=== PATIENT | male | born 1995 | race Caucasian/White ===

== ENCOUNTER 2017-01-28 14:58 | Emergency (ER) | payer SELFPAY ==
[2017-01-28 15:07] VITALS: BP 152/84; BMI 30.7
--- NOTE | 2017-01-28 15:32 | DR.EXTPAIN ---
HPI - Time seen Time seen: 15:28 - PCP Primary Care Physician: NFD - Complaint/Symptoms Chief Complaint Doctor Comments: patient admits to lower abdominal pain s/p two days of diarrhea. He denies vomitng or fever. Chief Complaint:: LOWER BACK AND LOWER ABD PAIN - Source History Provided: Patient - Mode of arrival Mode of Arrival: Ambulatory - Timing Onset of Chief Complaint: 01/28/17 PMH - PMH Past Medical History: Yes Past Medical History: Asthma Past Surgical History: Yes Past Surgical History Comment: TRAUMA TO LEFT POINTER FINGER, NO SX - Family History History of Family Medical Conditions: No - Social History Does patient currently use any type of tobacco product: No Have you used tobacco products in the last 12 months: No Type of Tobacco Use: None Does any household member use tobacco: No Alcohol Use: Occasionally Do you use any recreational Drugs:: No Lives With: Family Lives Where: Home - infectious screening In the last 2 months have you had wt loss of >10#?: NO Have you had fever, night sweats or hemotysis?: No Have you traveled outside the country in the last 6 months?: No Isolation: Standard ROS - Review of Systems Eyes: No Symptoms Reported ENTM: No Symptoms Reported Respiratoy: No Symptoms Reported Cardiovascular: No Symptoms Reported Gastrointestinal/Abdominal: Abdominal Pain. negative: Constipation, Vomiting Genitourinary: No Symptoms Reported Neurological: No Symptoms Reported Musculoskeletal: Back Pain Integumentary: No Symptoms Reported, See HPI Hematologic/Lymphatic: No Symptoms Reported Endocrine: No Symptoms Reported Psychiatric: No Symptoms Reported All Other Systems: Reviewed and Negative PE - Vital Signs Vitals: Temperature 98.2 F Pulse Rate 82 Respiratory Rate 20 Blood Pressure 152/84 O2 Sat by Pulse Oximetry 99 - General Limitations: No Limitations General Appearance: Alert, In No Apparent Distress - Head Head Exam: Normal Inspection, Atraumatic - ENT ENT Exam: Normal Exam, Normal Oropharynx - Neck Neck Exam: Normal Inspection - Chest Chest Inspection: Normal Inspection - Respiratory Respiratory Exam: Normal Lung Sounds Bilat Respiratory Exam: Bilateral Clear to Auscultation - Cardiovascular Cardiovascular Exam: Regular Rate, Normal Rhythm - Abdominal Exam Abdominal Exam: Normal Inspection, Normal Bowel Sounds Abdominal Tenderness: negative: RUQ, RLQ, LUQ, LLQ, Epigastrium, Suprapubic, Diffuse, Mild, Moderate, Severe, Other - Extremities Extremities Exam: Normal Inspection, Full ROM - Upper Extremities Shoulder Exam: Normal Inspection, Full ROM Arm Exam: Normal Inspection Elbow Exam: Normal Inspection Forearm Exam: Normal Inspection, Full ROM Hand Exam: Normal Inspection Neuromotor Exam: Normal Exam Neurosensory Exam: Normal Exam Hand Tendon Exam: Flexor Digitorium Profundus (Location) Upper Ext. Vascular Exam: Capillary Refill, Radial Pulse - Lower Extremities Hip/Pelvis Exam: Normal Inspection Upper Leg Exam: Normal Inspection Knee Exam: Normal Inspection, Full ROM Lower Leg Exam: Normal Inspection Ankle Exam: Normal Inspection Foot/Toe Exam: Normal Inspection Neurovascular/Tendon Exam: Normal Capillary Refill Gait Exam: Observed and Normal - Back Back Exam: Normal Inspection, Full ROM - Neurological Neurological Exam: Alert, Oriented X3, CN II-XII Intact - Psychiatric Psychiatric Exam: Normal Affect - Skin Skin Exam: Warm, Dry Type of Lesion: Rash ROR - Labs Reviewed Result Diagrams: 01/28/17 15:42 01/28/17 15:42 Laboratory: WBC 7.6 X10^3/uL (3.6-10.0) 01/28/17 15:42 RBC 5.20 X10^6/uL (4.7-6.0) 01/28/17 15:42 Hgb 15.8 g/dL (13.5-18.0) 01/28/17 15:42 Hct 44.3 % (42.0-54.0) 01/28/17 15:42 MCV 85.3 fL (80.0-100.0) 01/28/17 15:42 MCH 30.3 pg (27.0-34.0) 01/28/17 15:42 MCHC 35.6 g/dL (33.0-35.0) H 01/28/17 15:42 RDW 12.0 % (11.6-16.5) 01/28/17 15:42 Plt Count 183 X10^3/uL (150.0-450.0) 01/28/17 15:42 MPV 9.3 fL (7.4-11.0) 01/28/17 15:42 Neut % 69.1 % (42.0-75.0) 01/28/17 15:42 Lymph % 16.6 % (21.0-51.0) L 01/28/17 15:42 [place] % 9.6 % (0.0-13.0) 01/28/17 15:42 Eos % 4.4 % (0.9-2.9) H 01/28/17 15:42 Baso % 0.3 % (0.2-1.0) 01/28/17 15:42 Neut # 5.2 x10^3/uL (2.2-4.8) H 01/28/17 15:42 Lymph # 1.3 X10^3/uL (1.3-2.9) 01/28/17 15:42 [place] # 0.7 x10^3/uL (0.3-0.8) 01/28/17 15:42 Eos # 0.3 x10^3/uL (0.0-0.2) H 01/28/17 15:42 Baso # 0.0 X10^3/uL (0.0-0.1) 01/28/17 15:42 Absolute Nucleated RBC 0.1 /100WBC 01/28/17 15:42 Sodium 139 mmol/L (136-145) 01/28/17 15:42 Corrected Sodium TNP 01/28/17 15:42 Potassium 4.0 mmol/L (3.5-5.1) 01/28/17 15:42 Chloride 103 mmol/L (98-107) 01/28/17 15:42 Carbon Dioxide 29.5 mmol/L (21-32) 01/28/17 15:42 BUN 13 mg/dL (7-18) 01/28/17 15:42 Creatinine 1.28 mg/dL (0.70-1.30) 01/28/17 15:42 Est GFR (MDRD) Af Amer > 60 (>60) 01/28/17 15:42 Est GFR (MDRD) Non-Af > 60 (>60) 01/28/17 15:42 Glucose 93 mg/dL (65-99) 01/28/17 15:42 Calcium 8.8 mg/dL (8.5-10.1) 01/28/17 15:42 C-Reactive Protein 34.50 mg/L (0-3.0) H 01/28/17 15:42 Specimen Type Clean catch urine 01/28/17 15:25 Urine Color Yellow (YELLOW) 01/28/17 15:25 Urine Appearance Clear (CLEAR) 01/28/17 15:25 Urine pH 7.0 (5.0 - 8.0) 01/28/17 15:25 Ur Specific [place] 1.005 (1.000-1.030) 01/28/17 15:25 Urine Protein Negative (NEGATIVE) 01/28/17 15:25 Urine Glucose (UA) Negative (NEGATIVE) 01/28/17 15:25 Urine Ketones Negative (NEGATIVE) 01/28/17 15:25 Urine Occult Blood Negative (NEGATIVE) 01/28/17 15:25 Urine Nitrite Negative (NEGATIVE) 01/28/17 15:25 Urine Bilirubin Negative (NEGATIVE) 01/28/17 15:25 Urine Urobilinogen 1+ (NORMAL) 01/28/17 15:25 Ur Leukocyte Esterase Negative (NEGATIVE) 01/28/17 15:25 Urine RBC Rare /HPF (NEGATIVE) 01/28/17 15:25 Urine WBC Rare /HPF (NEGATIVE) 01/28/17 15:25 Ur Squamous Epith Cells Rare /HPF (NEGATIVE) 01/28/17 15:25 Amorphous Sediment Trace /HPF (NEGATIVE) 01/28/17 15:25 Urine Bacteria Negative /HPF (NEGATIVE) 01/28/17 15:25 Ur Culture Indicated? No/not indicated 01/28/17 15:25 - XRAY XRAY Interpreted by: Radiologist (KUB: negative CT: Abd/pelv: negative) - Diagnosis Discharge Problem: Acute diarrhea - Discharge Plan Condition: Stable - Follow ups/Referrals Follow ups/Referrals: NFD,None [Primary Care Provider] - 3 days - Instructions
[2017-01-28 15:53] LABS: BASOPHILS % (AUTO) 0.3 % (0.2-1.0); EOSINOPHILS # (AUTO) 0.3 x10^3/uL (0.0-0.2); EOSINOPHILS % (AUTO) 4.4 % (0.9-2.9); HEMATOCRIT 44.3 % (42.0-54.0); HEMOGLOBIN 15.8 g/dL (13.5-18.0); LYMPHOCYTES # (AUTO) 1.3 X10^3/uL (1.3-2.9); LYMPHOCYTES % (AUTO) 16.6 % (21.0-51.0); MEAN CORPUSCULAR HEMOGLOBIN 30.3 pg (27.0-34.0); MEAN CORPUSCULAR HGB CONC 35.6 g/dL (33.0-35.0); MEAN CORPUSCULAR VOLUME 85.3 fL (80.0-100.0); MEAN PLATELET VOLUME 9.3 fL (7.4-11.0); MONOCYTES # (AUTO) 0.7 x10^3/uL (0.3-0.8); MONOCYTES % (AUTO) 9.6 % (0.0-13.0); NEUTROPHILS # (AUTO) 5.2 x10^3/uL (2.2-4.8); NEUTROPHILS % (AUTO) 69.1 % (42.0-75.0); PLATELET COUNT 183 X10^3/uL (150.0-450.0); WHITE BLOOD COUNT 7.6 X10^3/uL (3.6-10.0)
[2017-01-28 16:09] LABS: CHLORIDE 103 mmol/L (98-107)
[2017-01-28 16:10] LABS: BILIRUBIN,URINE NEGATIVE (NEGATIVE); BLOOD/HEMOGLOBIN,URINE NEGATIVE (NEGATIVE); GLUCOSE, URINE NEGATIVE (NEGATIVE); KETONES,URINE NEGATIVE (NEGATIVE); LEUKOCYTE ESTERASE ,URINE NEGATIVE (NEGATIVE); NITRITES,URINE NEGATIVE (NEGATIVE); PROTEIN,URINE NEGATIVE (NEGATIVE); UROBILINOGEN,URINE 1+ (NORMAL)
--- NOTE | 2017-01-28 16:18 | RAD ---
HISTORY: Abdominal Pain Study: Single flat view of the abdomen. Comparison: None Findings: Evaluation of the abdomen demonstrates a normal bowel gas pattern. No free air. No pathological sof t tissue mass or calcification can be observed. The bony structures are grossly intact. IMPRESSION: 1. No evidence for acute abdominal pathology identified. Reported By:
[2017-01-28 16:23] LABS: BLOOD UREA NITROGEN 13 mg/dL (7-18); CALCIUM 8.8 mg/dL (8.5-10.1); CARBON DIOXIDE 29.5 mmol/L (21-32); CREATININE 1.28 mg/dL (0.70-1.30); GLUCOSE 93 mg/dL (65-99); SODIUM 139 mmol/L (136-145); eGFR BLACK RACES > 60 (>60); eGFR NON BLACK RACES > 60 (>60)
[2017-01-28 16:24] LABS: APPEARANCE,URINE CLEAR (CLEAR); COLOR,URINE YELLOW (YELLOW)
[2017-01-28 16:25] LABS: AMORPHOUS SEDIMENT,UR TRACE /HPF (NEGATIVE); BACTERIA,URINE NEGATIVE /HPF (NEGATIVE); RBC,URINE RARE /HPF (NEGATIVE); SQUAMOUS EPITHELIAL CELL,UR RARE /HPF (NEGATIVE)
[2017-01-28] MEDS ORDERED: BENTYL CAP 10 MG PO ONE ×2 (16:28→16:41)
[2017-01-28] MEDS ORDERED: NS 100 ML IV 100 ML IV ONE (17:03)
--- NOTE | 2017-01-28 17:38 | CT ---
HISTORY: Low abdominal pain. Study: CT abdomen and pelvis with contrast Comparison: KUB dated same day. Technique: Multiple axial images of the abdomen and pelvis were obtained from the lung bases to the pubic symph ysis after the administration of IV contrast. Dose reduction techniques including Automated Exposur e Control (AEC) and adjustment of mA and kV were utilized. Findings: Limited evaluation of the bowel secondary lack of oral contrast. The visualized portions of the lung bases are unremarkable. The liver, spleen, pancreas, kidneys, a nd adrenal glands are unremarkable in their CT appearance. The gallbladder is unremarkable in its CT appearance. No significant mesenteric lymphadenopathy or stranding can be observed. No free fluid or free air is seen within the abdomen. The bowel is collapsed , which limits evaluation. The larg e and small bowel otherwise appear normal. The appendix is normal. The bladder is unremarkable. The prostate gland appears normal. The bony structures are grossly intact. IMPRESSION: No CT evidence of acute abdominal/pelvic pathology. Reported By:
== END 2017-01-28 17:46 | disposition home or self-care (01) ==
LOC: ER 15:14
DX: R19.7 Diarrhea, unspecified (principal); R10.84 Generalized abdominal pain
CPT/HCPCS: 36415; 74000; 74177; 80048; 81001; 85025; 86140; 96365; 99283; A4222

== ENCOUNTER 2019-07-20 14:20 | Inpatient (IN) ==
--- NOTE | 2019-07-20 15:10 | DR.GENAD ---
HPI Time Seen Time Seen by Provider: 07/20/19 15:09 PCP Primary Care Physician: OMA HPI Comment HPI Comment: pt with ca. Today, fever to 102, vomiting and diarrhea. Was put on Keflex for small skin abscess a week ago. No sx's of URI, cough, UTI. Complaint/Symptoms Chief Complaint Doctors Comments: in attendance. Says he gets his ca care at [facility] in [facility]. 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 Finished radiation about 3 weeks ago. Just finished vinblastine and due to restart in 7-10 days. Chief Complaint:: "SICK, FEVER, N/V/D, PAIN, CHILLS, ON A BREAK FROM CHEMO AND RADIATION, MEDULA BLASTOMA" Self Treatment fo Chief Complaint: NONE Nurses notes reviewed Nurses Notes Review: Yes Source History Provided: Patient and Significant Other Mode of Arrival Mode of Arrival: Wheelchair Timing Onset of Chief Complaint: 07/20/19 Came on: Gradually Duration Duration: Since Onset Modifying Factors Worsens:: by nothing Improves:: with nothing Associated Signs and Symptoms Associated Signs and Symptoms: fever, V, D PMH PMH Past Medical History: Yes Past Medical History: GERD Past Medical History Comment: CANCER Past Surgical History: Yes Past Surgical History Comment: 3 brain SURGERIES Family History History of Family Medical Conditions: Yes Family Medical History: Cancer and Hypertension Social History Does patient currently use any type of tobacco product: No Have you used tobacco products in the last 12 months: No Type of Tobacco Use: None Does any household member use tobacco: No Alcohol Use: None Do you use any recreational Drugs:: No Lives With: Spouse Lives Where: Home infectious screening In the last 2 months have you had wt loss of >10#?: NO Have you had fever, night sweats or hemotysis?: No Have you traveled outside the country in the last 6 months?: No Isolation: Standard ROS Review of Systems Constitutional: Fever and Loss of Appetite ENTM: No Symptoms Reported Respiratoy: No Symptoms Reported Cardiovascular: No Symptoms Reported Gastrointestinal/Abdominal: See HPI, Diarrhea and Vomiting Genitourinary: No Symptoms Reported Neurological: No Symptoms Reported Musculoskeletal: No Symptoms Reported Integumentary: No Symptoms Reported All Other Systems: Reviewed and Negative PE Vital Signs Vitals: Temperature 97.9 F Pulse Rate 85 Respiratory Rate 18 Blood Pressure [Left Arm] 132/81 Blood Pressure 129/74 O2 Sat by Pulse Oximetry 97 General Limitations: No Limitations General Appearance: Alert and Other (actively vomiting) Eyes Eye exam: Normal Appearance, PERRL, EOMI and Other (no obvious papilledema.); negative Scleral Icterus and Nystagmus ENT ENT Exam: Normal Exam and Mucous Membranes Dry Neck Neck Exam: Full ROM; negative Meningismus and Lymphadenopathy Respiratory Respiratory Exam: Normal Lung Sounds Bilat Cardiovascular Cardiovascular Exam: Regular Rate and Normal Rhythm Abdominal Exam Abdominal Exam: Soft, Tenderness and Guarding; negative Rebound, Rigidity and Mass Abdominal Tenderness: Epigastrium Extremities Extremities Exam: Normal Inspection and Full ROM Back Back Exam: Full ROM; negative (R) CVA Tenderness and (L) CVA Tenderness Neurologic Neurological Exam: Alert and Oriented X3 Skin Skin Exam: Warm and Dry; negative Rash and Diaphoresis MDM Differential Diagnosis Differential Diagnosis: PN, UTI, Flu. Or intraabdominal infection. COURSE Treatment Treatment: Pt improved with IV ZOFRAN AND FLUIDS. NO SOURCE OF INFECTION FOUND UNTIL CT ABD SHOWED ENTERITIS. Will call oncologist in [place] to discuss about treatment and possible transfer. ROR Labs Reviewed Laboratory Results Reviewed?: Yes Result Diagrams: 07/22/19 06:09 07/22/19 06:09 Laboratory: WBC 4.1 X10^3/uL (3.6-10.0) 07/20/19 15:50 RBC 4.43 X10^6/uL (4.7-6.0) L 07/20/19 15:50 Hgb 15.0 g/dL (13.5-18.0) 07/20/19 15:50 Hct 42.8 % (42.0-54.0) 07/20/19 15:50 MCV 96.7 fL (80.0-100.0) 07/20/19 15:50 MCH 33.8 pg (27.0-34.0) 07/20/19 15:50 MCHC 35.0 g/dL (33.0-35.0) 07/20/19 15:50 RDW 16.7 % (11.6-16.5) H 07/20/19 15:50 Plt Count 190 X10^3/uL (150.0-450.0) 07/20/19 15:50 MPV 7.2 fL (7.4-11.0) L 07/20/19 15:50 Neut % (Auto) 90.0 % (42.0-75.0) H 07/20/19 15:50 Lymph % (Auto) 5.1 % (21.0-51.0) L 07/20/19 15:50 [place] % (Auto) 3.9 % (0.0-13.0) 07/20/19 15:50 Eos % (Auto) 0.6 % (0.9-2.9) L 07/20/19 15:50 Baso % (Auto) 0.4 % (0.2-1.0) 07/20/19 15:50 Neut # (Auto) 3.7 x10^3/uL (2.2-4.8) 07/20/19 15:50 Lymph # (Auto) 0.2 X10^3/uL (1.3-2.9) L 07/20/19 15:50 [place] # (Auto) 0.2 x10^3/uL (0.3-0.8) L 07/20/19 15:50 Eos # (Auto) 0.0 x10^3/uL (0.0-0.2) 07/20/19 15:50 Baso # (Auto) 0.0 X10^3/uL (0.0-0.1) 07/20/19 15:50 Absolute Nucleated RBC 0.1 /100WBC 07/20/19 15:50 Sodium 142 mmol/L (136-145) 07/20/19 15:50 Corrected Sodium TNP 07/20/19 15:50 Potassium 3.6 mmol/L (3.5-5.1) 07/20/19 15:50 Chloride 105 mmol/L (98-107) 07/20/19 15:50 Carbon Dioxide 28.7 mmol/L (21-32) 07/20/19 15:50 BUN 16 mg/dL (7-18) 07/20/19 15:50 Creatinine 0.95 mg/dL (0.70-1.30) 07/20/19 15:50 Est GFR (MDRD) Af Amer > 60 (>60) 07/20/19 15:50 Est GFR (MDRD) Non-Af > 60 (>60) 07/20/19 15:50 Glucose 97 mg/dL (65-99) 07/20/19 15:50 Calcium 9.1 mg/dL (8.5-10.1) 07/20/19 15:50 Corrected Calcium TNP 07/20/19 15:50 Total Bilirubin 0.60 mg/dL (0.2-1.0) 07/20/19 15:50 AST 29 Units/L (15-37) 07/20/19 15:50 ALT 161 Units/L (12-78) H 07/20/19 15:50 Alkaline Phosphatase 48 Units/L (46-116) 07/20/19 15:50 Total Protein 7.2 g/dL (6.4-8.2) 07/20/19 15:50 Albumin 3.9 g/dL (3.4-5.0) 07/20/19 15:50 Globulin 3.3 g/dL (2.5-4.5) 07/20/19 15:50 Albumin/Globulin Ratio 1.2 Ratio (1.1-2.1) 07/20/19 15:50 Lipase 120 Units/L (73-393) 07/20/19 15:50 Specimen Type Random urine 07/20/19 17:45 Urine Color Yellow (YELLOW) 07/20/19 17:45 Urine Appearance Clear (CLEAR) 07/20/19 17:45 Urine pH 5.0 (5.0 - 8.0) 07/20/19 17:45 Ur Specific [place] 1.025 (1.000-1.030) 07/20/19 17:45 Urine Protein Negative (NEGATIVE) 07/20/19 17:45 Urine Glucose (UA) Negative (NEGATIVE) 07/20/19 17:45 Urine Ketones Negative (NEGATIVE) 07/20/19 17:45 Urine Occult Blood 1+ (NEGATIVE) 07/20/19 17:45 Urine Nitrite Negative (NEGATIVE) 07/20/19 17:45 Urine Bilirubin Negative (NEGATIVE) 07/20/19 17:45 Urine Urobilinogen Normal (NORMAL) 07/20/19 17:45 Ur Leukocyte Esterase Negative (NEGATIVE) 07/20/19 17:45 Urine RBC 0-2 /HPF (0-3) 07/20/19 17:45 Urine WBC None seen /HPF (0-5) 07/20/19 17:45 Ur Squamous Epith Cells Rare /HPF (NEGATIVE) 07/20/19 17:45 Urine Bacteria Trace /HPF (NEGATIVE) 07/20/19 17:45 Ur Culture Indicated? No/not indicated 07/20/19 17:45 Influenza Type A (PCR) Negative (NEGATIVE) 07/20/19 14:44 Influenza Type B (PCR) Negative (NEGATIVE) 07/20/19 14:44 Other Results Comments: WBC n'l but left shift XRAY XRAY Interpreted by: Radiologist XRAY Findings: Obstr series n'l. CT abd/pelvis w IV shows infectious enteritis Opioid Opioid Risk Tool Age (Charlie box if 16-45): Yes History of Preadolescent Sexual Abuse: No Total: 1 Total Score Risk Category: Low Risk Copyright: Ramirez SUAREZ predicting aberrant behaviors Diagnosis Discharge Problem: Acute gastroenteritis, Acute diarrhea, Immunosuppressed due to chemotherapy Nausea and vomiting Qualifiers: Vomiting type: unspecified Vomiting Intractability: unspecified Qualified Code(s): R11.2 - Nausea with vomiting, unspecified ADDITIONAL NOTES Additional Notes Additional Notes: after consultation with oncologist at [facility] in [facility], patient placed in observation here under the care of Dr. Murillo
[2019-07-20] MEDS ORDERED: NS 1000 ML 1,000 ML IV ONE (15:44)
[2019-07-20] MEDS ORDERED: ZOFRAN INJ 4 MG VIAL IVP ONE (15:44)
[2019-07-20 15:59] LABS: BASOPHILS % (AUTO) 0.4 % (0.2-1.0); EOSINOPHILS % (AUTO) 0.6 % (0.9-2.9); HEMATOCRIT 42.8 % (42.0-54.0); LYMPHOCYTES # (AUTO) 0.2 X10^3/uL (1.3-2.9); LYMPHOCYTES % (AUTO) 5.1 % (21.0-51.0); MEAN CORPUSCULAR HEMOGLOBIN 33.8 pg (27.0-34.0); MEAN CORPUSCULAR VOLUME 96.7 fL (80.0-100.0); MEAN PLATELET VOLUME 7.2 fL (7.4-11.0); MONOCYTES # (AUTO) 0.2 x10^3/uL (0.3-0.8); MONOCYTES % (AUTO) 3.9 % (0.0-13.0); NEUTROPHILS # (AUTO) 3.7 x10^3/uL (2.2-4.8); PLATELET COUNT 190 X10^3/uL (150.0-450.0); RED BLOOD COUNT 4.43 X10^6/uL (4.7-6.0); RED CELL DISTRIBUTION WIDTH 16.7 % (11.6-16.5); WHITE BLOOD COUNT 4.1 X10^3/uL (3.6-10.0)
[2019-07-20 16:08] LABS: ALANINE AMINOTRANSFERASE 161 Units/L (12-78); ALBUMIN 3.9 g/dL (3.4-5.0); ALKALINE PHOSPHATASE 48 Units/L (46-116); ASPARTATE AMINO TRANSFERASE 29 Units/L (15-37); BLOOD UREA NITROGEN 16 mg/dL (7-18); CALCIUM 9.1 mg/dL (8.5-10.1); CARBON DIOXIDE 28.7 mmol/L (21-32); CHLORIDE 105 mmol/L (98-107); CREATININE 0.95 mg/dL (0.70-1.30); SODIUM 142 mmol/L (136-145); TOTAL PROTEIN 7.2 g/dL (6.4-8.2); eGFR NON BLACK RACES > 60 (>60)
[2019-07-20] MEDS ORDERED: NS 1000 ML 1,000 ML ONE ×2 (16:11→18:41)
[2019-07-20] MEDS ORDERED: ZOFRAN INJ 4 MG VIAL ONE (16:12)
[2019-07-20 17:52] LABS: APPEARANCE,URINE CLEAR (CLEAR); BILIRUBIN,URINE NEGATIVE (NEGATIVE); BLOOD/HEMOGLOBIN,URINE 1+ (NEGATIVE); COLOR,URINE YELLOW (YELLOW); GLUCOSE, URINE NEGATIVE (NEGATIVE); KETONES,URINE NEGATIVE (NEGATIVE); LEUKOCYTE ESTERASE ,URINE NEGATIVE (NEGATIVE); NITRITES,URINE NEGATIVE (NEGATIVE); PROTEIN,URINE NEGATIVE (NEGATIVE); UROBILINOGEN,URINE NORMAL (NORMAL)
[2019-07-20 17:59] LABS: BACTERIA,URINE TRACE /HPF (NEGATIVE); RBC,URINE 0-2 /HPF (0-3); SQUAMOUS EPITHELIAL CELL,UR RARE /HPF (NEGATIVE)
[2019-07-20] MEDS ORDERED: DILAUDID INJ IVP ONE (17:59)
[2019-07-20] MEDS ORDERED: DILAUDID INJ ONE (18:04)
[2019-07-20] MEDS ORDERED: NS 100 ML IV 100 ML IV ONE (18:42)
[2019-07-20] MEDS: NS 1000 ML 1,000 ML IV SCH (19:00)
--- NOTE | 2019-07-20 19:00 | CT ---
HISTORYFEVER, N/V/D BRAIN CANCER, BRAIN SURGERY X 3, [id number]/PELVIS WITH CONCOMPARISONJuly 2016TECHNIQUEMultiple axial images of the abdomen and pelvis were obtained from the lung bases to the pubic symphysis after the administration of IV contrast.FINDINGSThe lung bases are clear. The liver, spleen, pancreas, bilateral adrenal glands, and bilateral kidneys are unremarkable. Non aneurysmal aorta. Partially visualized been ventricular peritoneal shunt with tip terminating in the right lower quadrant. Diffuse fluid-filled loops of small and large bowel with mural hyperemia. Diffuse mild wall thickening thickening of the small bowel. Mesenteric vascular engorgement. Scattered small abdominal fluid. No free air. No intra-abdominal abscess. The appendix is normal. The osseous structures are intact. The soft tissues are unremarkable.IMPRESSIONDiffuse thickening of the small bowel with mild thickening and hyperemia. Findings reflect infectious and/or inflammatory enteritis. No obstruction.Electronically signed by: NATA YAN (Jul 20, 2019 18:59:24)
--- NOTE | 2019-07-20 19:50 | RAD ---
HISTORYFEVER, N/V/D BRAIN CANCER, BRAIN SURGERY X 3, SHUNTSTUDYACUTE ABDOMEN SERIESCOMPARISONNoneFINDINGSThe trachea is midline. Right chest Port-A-Cath with tip terminating at the cava atrial junction. Ventricular no peritoneal shunt transverses from the visualized neck, terminating within the right lower quadrant.Flat plate and upright evaluation of the abdomen demonstrates a [normal bowel gas pattern]. There is no pneumoperitoneum. No pathological soft tissue mass or calcification can be observed. The bony structures are grossly intact. Tubular metallic densities overlie the right is skin and may be external to the patient.IMPRESSION1. [No acute cardiopulmonary disease.]2. [No evidence for acute abdominal pathology identified.]Electronically signed by: NATA YAN (Jul 20, 2019 19:49:27)
[2019-07-20] MEDS ORDERED: NS 500 ML IV 1,000 ML IV ONE (22:35)
[2019-07-20] MEDS ORDERED: ZOFRAN INJ 4 MG VIAL IVP PRN (22:36)
[2019-07-20] MEDS: DEMEROL INJ IVP PRN (23:38)
[2019-07-21 00:59] VITALS: BMI 34.5
[2019-07-21] MEDS: NS 1000 ML 1,000 ML IV SCH ×3 (05:25→21:38)
[2019-07-21 05:47] LABS: BASOPHILS % (AUTO) 1.1 % (0.2-1.0); EOSINOPHILS % (AUTO) 0.6 % (0.9-2.9); HEMATOCRIT 43.1 % (42.0-54.0); LYMPHOCYTES # (AUTO) 0.4 X10^3/uL (1.3-2.9); LYMPHOCYTES % (AUTO) 12.2 % (21.0-51.0); MEAN CORPUSCULAR HEMOGLOBIN 33.7 pg (27.0-34.0); MEAN CORPUSCULAR HGB CONC 34.7 g/dL (33.0-35.0); MEAN CORPUSCULAR VOLUME 97.2 fL (80.0-100.0); MEAN PLATELET VOLUME 8.4 fL (7.4-11.0); MONOCYTES # (AUTO) 0.4 x10^3/uL (0.3-0.8); MONOCYTES % (AUTO) 13.1 % (0.0-13.0); NEUTROPHILS # (AUTO) 2.1 x10^3/uL (2.2-4.8); PLATELET COUNT 228 X10^3/uL (150.0-450.0); RED BLOOD COUNT 4.44 X10^6/uL (4.7-6.0); RED CELL DISTRIBUTION WIDTH 17.1 % (11.6-16.5)
[2019-07-21] MEDS: ZOFRAN INJ 4 MG VIAL IVP PRN ×3 (05:51→23:38)
[2019-07-21] MEDS: DEMEROL INJ IVP PRN ×3 (05:51→23:38)
[2019-07-21 05:59] LABS: PLATELET MORPHOLOGY COMMENT NORMAL (NORMAL); WHITE BLOOD COUNT 3.1 X10^3/uL (3.6-10.0)
[2019-07-21 06:05] LABS: ALANINE AMINOTRANSFERASE 199 Units/L (12-78); ALBUMIN 3.2 g/dL (3.4-5.0); ALKALINE PHOSPHATASE 41 Units/L (46-116); ASPARTATE AMINO TRANSFERASE 59 Units/L (15-37); BLOOD UREA NITROGEN 22 mg/dL (7-18); CALCIUM 8.3 mg/dL (8.5-10.1); CARBON DIOXIDE 18.6 mmol/L (21-32); CHLORIDE 105 mmol/L (98-107); COR CA(FOR HYPOALB) 8.9 mg/dL (8.5-10.1); COR NA(FOR HYPERGLY) 138 mmol/L (136-145); CREATININE 1.73 mg/dL (0.70-1.30); SODIUM 138 mmol/L (136-145); TOTAL PROTEIN 6.3 g/dL (6.4-8.2); eGFR NON BLACK RACES 52 (>60)
[2019-07-21 06:12] LABS: CKMB % 1.9 % (<4); CREATINE KINASE 53 Units/L (39-308); CREATINE KINASE MB < 1.0 ng/mL (0-4.0); TROPONIN I < 0.02 ng/mL (0-1.5)
[2019-07-21] MEDS: MAGNESIUM SULFATE 1 GRAM/100 mL PREMIX 1 GM/100 ML BAG IV PRN ×6 (07:11→17:35)
[2019-07-21 09:49] LABS: CRYPTOSPORIDIUM PARVUM ANTIGEN NEGATIVE (NEGATIVE); GIARDIA LAMBLIA ANTIGEN NEGATIVE (NEGATIVE)
[2019-07-21] MEDS: ELIQUIS PO SCH ×2 (10:00→21:33)
[2019-07-21] MEDS: PriLOSEC PO SCH (10:01)
[2019-07-21] MEDS: DECADRON TAB PO SCH ×4 (10:01→21:34)
[2019-07-21] MEDS: LOMOTIL PO PRN ×2 (12:27→16:59)
[2019-07-21] MEDS ORDERED: LANTISEPTIC TOP SCH (17:00)
[2019-07-21] MEDS ORDERED: NYSTATIN OINT ONE (18:25)
--- NOTE | 2019-07-21 21:07 | DR.H&P ---
H&P - History & Physical for Day of: H&P Date: 07/20/19 - Chief Complaint Chief Complaint: FEVER, N/V/D, ABDOMINAL PAIN - History of Present Illness History of Present Illness: IS A 24 YEAR OLD WHITE MALE. HE PRESENTED TO THE ER WITH COMPLAINTS OF FEVER, VOMITING, DIARRHEA, AND ABDOMINAL PAIN. HE REPORTS THAT HE WAS PLACED ON KEFLEX ONE WEEK AGO FOR A SKIN ABSCESS. HE DENIES COUGH, URI, OR URINARY SYMPTOMS. 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 HE IS DUE TO RESTART VINBLASTINE IN 7-10 DAYS. HE HAS HAD THREE BRAIN SURGERIES IN THE PAST YEAR. ON ARRIVAL, VITALS WERE 97.9-100-16-95%-131/96. RBC 4.43, ALT 161. URINALYSIS REVEALED: WBC NONE SEEN, RBC 0-2, BACTERIA TRACE, LEUKOCYTES NEGATIVE. AN ABDOMINAL XRAY WAS OBTAINED AND REVEALED: NO ACUTE CARDIOPULMONARY DISEASE. NO EVIDENCE FOR ACUTE ABDOMINAL PATHOLOGY IDENTIFIED. AN ABDOMEN/PELVIS CT WAS OBTAINED AND REVEALED: DIFFUSE THICKENING OF THE SMALL BOWEL WITH MILD THICKENING AND HYPEREMIA. FINDINGS REFLECT INFECTIOUS AND/OR INFLAMMATORY ENTERITIS. NO OBSTRUCTION. HE WAS GIVEN DILAUDID 1MG IV X 1 DOSE, ZOFRAN 4MG IV X 1 DOSE, AND A NORMAL SALINE BOLUS. HE WAS ADMITTED FOR FURTHER EVALUATION AND TREATMENT OF GASTROENTERITIS AND MEDULO BLASTOMA. HE WAS STARTED ON NORMAL SALINE AT 125ML/HR, ZOFRAN 4MG IV Q6H PRN, DEMEROL 25MG IV Q6H PRN, AND HOME MEDICATIONS WERE RESUMED. WE WILL OBTAIN STOOL STUDIES TODAY. OTHERWISE, WE PLAN TO FOLLOW UP WITH AM LABS AND CONTINUE TO MONITOR. - Past Medical History Past Medical History: GERD Additional Medical History: MEDULA BLASTOMA - Past Surgical History Surgical History: Other Additional Surgical History: BRAIN SURGERY X 3 - Family History Family Medical History: Cancer, Hypertension - Social History Does patient currently use any type of tobacco product: No Have you used tobacco products in the last 12 months: No Type of Tobacco Use: None Does any household member use tobacco: No Alcohol Use: None Drug Use: None Prescription drug monitoring program results: PDMP was not reviewed - Medications Home Medications: No Known Drug Allergies Allergy (Verified 07/18/19 16:29) CONTINUE taking the following medications apixaban [Eliquis] 5 mg PO BID 07/20/19 [History] dexamethasone 4 mg PO TID 07/20/19 [History] docusate sodium [DOK] 100 mg PO BID 07/20/19 [History] omeprazole 40 mg PO DAILY 07/20/19 [History] oxycodone 10 mg PO Q4HR PRN 07/20/19 [History] propranolol 60 mg PO DAILY 07/20/19 [History] - Review of Systems Constitutional: Fever, Weakness Eyes: No Symptoms Reported ENT: No Symptoms Reported Respiratory: No Symptoms Reported Cardiovascular: No Symptoms Reported Gastrointestinal: Nausea, Vomiting, Abdominal Pain, Diarrhea Genitourinary: No Symptoms Reported Musculoskeletal: No Symptoms Reported Skin: No Symptoms Reported Neurological: Weakness - Physical Exam Vital Signs: Temperature 99.6 F Pulse Rate [Right Brachial] 117 Pulse Rate 85 Respiratory Rate 22 Blood Pressure [Left Arm] 111/60 Blood Pressure 129/74 O2 Sat by Pulse Oximetry 97 Oriented: Normal Eyes: Normal Ear: Normal Nose: Normal Throat: Normal Respiratory: Diminished Throughout Cardiovascular: Normal : Normal Auscultation: Bowel Sounds: Increased Tenderness: Diffuse, Moderate. negative: Rebound, Guarding, Rigidity Skin: Normal Musculoskeletal: Normal Psychiatric: Normal Mood Description: Calm Affect: Normal Speech Pattern: Clear - Assessment/Plan (1) Gastroenteritis Status: Acute Plan: ADMIT, NORMAL SALINE, IV ZOFRAN PRN, IV DEMEROL PRN, CONTINUE TO MONITOR (2) Nausea and vomiting Qualifiers: Vomiting type: unspecified Vomiting Intractability: unspecified Qualified Code(s): R11.2 - Nausea with vomiting, unspecified Status: Acute (3) Acute diarrhea Status: Acute Plan: OBTAIN STOOL STUDIES, CONTINUE TO MONITOR - Allergies Allergies/Adverse Reactions: Allergies Allergy/AdvReac Type Severity Reaction Status Date / Time No Known Drug Allergies Allergy Verified 07/18/19 16:29
[2019-07-21] MEDS: NYSTATIN OINT TOP SCH (21:38)
[2019-07-22] MEDS: LOMOTIL PO PRN ×3 (02:39→23:50)
[2019-07-22] MEDS: NS 1000 ML 1,000 ML IV SCH ×4 (03:22→17:29)
[2019-07-22] MEDS: DECADRON TAB PO SCH (05:49)
[2019-07-22 06:40] LABS: BASOPHILS % (AUTO) 0.2 % (0.2-1.0); EOSINOPHILS % (AUTO) 0.1 % (0.9-2.9); LYMPHOCYTES # (AUTO) 0.2 X10^3/uL (1.3-2.9); LYMPHOCYTES % (AUTO) 9.5 % (21.0-51.0); MEAN CORPUSCULAR HGB CONC 35.3 g/dL (33.0-35.0); MEAN CORPUSCULAR VOLUME 93.6 fL (80.0-100.0); MEAN PLATELET VOLUME 7.7 fL (7.4-11.0); MONOCYTES # (AUTO) 0.3 x10^3/uL (0.3-0.8); MONOCYTES % (AUTO) 12.2 % (0.0-13.0); NEUTROPHILS # (AUTO) 1.8 x10^3/uL (2.2-4.8); PLATELET COUNT 180 X10^3/uL (150.0-450.0); RED BLOOD COUNT 3.85 X10^6/uL (4.7-6.0); RED CELL DISTRIBUTION WIDTH 16.8 % (11.6-16.5); WHITE BLOOD COUNT 2.3 X10^3/uL (3.6-10.0)
[2019-07-22 06:55] LABS: ALANINE AMINOTRANSFERASE 586 Units/L (12-78); ALBUMIN 2.7 g/dL (3.4-5.0); ALKALINE PHOSPHATASE 41 Units/L (46-116); ASPARTATE AMINO TRANSFERASE 151 Units/L (15-37); BLOOD UREA NITROGEN 15 mg/dL (7-18); CALCIUM 8.5 mg/dL (8.5-10.1); CARBON DIOXIDE 19.2 mmol/L (21-32); CHLORIDE 102 mmol/L (98-107); COR CA(FOR HYPOALB) 9.5 mg/dL (8.5-10.1); COR NA(FOR HYPERGLY) 133 mmol/L (136-145); CREATININE 1.02 mg/dL (0.70-1.30); MAGNESIUM 2.2 mg/dL (1.7-2.9); SODIUM 132 mmol/L (136-145); TOTAL PROTEIN 6.2 g/dL (6.4-8.2); eGFR NON BLACK RACES > 60 (>60)
[2019-07-22 07:19] LABS: BAND NEUTROPHILS % 36 % (0-10); PLATELET MORPHOLOGY COMMENT NORMAL (NORMAL)
[2019-07-22 07:24] LABS: HEMOGLOBIN 12.7 g/dL (13.5-18.0)
[2019-07-22] MEDS: PriLOSEC PO SCH (08:47)
[2019-07-22] MEDS: ZOFRAN INJ 4 MG VIAL IVP PRN ×3 (08:47→21:25)
[2019-07-22] MEDS: DEMEROL INJ IVP PRN ×3 (08:47→21:40)
[2019-07-22] MEDS: ELIQUIS PO SCH ×2 (08:49→21:29)
[2019-07-22] MEDS ORDERED: FLAGYL TAB 500 MG PO ONE (08:54)
[2019-07-22] MEDS: FLAGYL TAB 500 MG PO SCH ×3 (08:56→21:29)
[2019-07-22] MEDS: NYSTATIN OINT TOP SCH ×2 (09:03→22:56)
[2019-07-22] MEDS: PREPARATION H OINT RECTAL PRN (12:00)
[2019-07-22] MEDS: TUCKS MEDICATED PAD TOP PRN (12:00)
[2019-07-22] MEDS ORDERED: NS 1000 ML 1,000 ML ONE (17:31)
[2019-07-22] MEDS: LANTISEPTIC TOP PRN (17:34)
--- NOTE | 2019-07-22 21:54 | PCM.PROG ---
Progress Note - Progress Note for Day of Date of Exam: 07/22/19 - Subjective Subjective: IS BEING TREATED FOR GASTROENTERITIS. TODAY, HE IS ALERT AND ORIENTED, LYING IN BED ON MORNING ROUNDS. HE CONTINUES WITH COMPLAINTS OF DIARRHEA, NAUSEA, AND ABDOMINAL PAIN. ON EXAMINATION, HEART IS REGULAR IN RATEAND RHYTHM. BILATERAL LUNGS ARE CLEAR TO AUSCULTATION. ABDOMEN IS ROUND, SOFT, AND NOTED WITH DIFFUSE TENDERNESS. HYPERACTIVE BOWEL SOUNDS ARE NOTED IN ALL QUADRANTS. HIS VITALS THIS MORNING ARE: 98.6-95-19-97%-154/82. LABS WERE OBTAINED. ABNORMAL LAB VALUES INCLUDE THE FOLLOWING: WBC 2.3, RBC 3.85, HGB 12.7, HCT 36.0, SODIUM 132, CARBON DIOXIDE 19.2, GLUCOSE 135, TOTAL BILI 1.70, AST 151, ALT 586, ALK PHOS 41, TOTAL PROTEIN 6.2, ALBUMIN 2.7. STOOL STUDIES WERE POSTIVE FOR WHITE CELLS AND THE C.DIFF TOXIN B GENE. STOOL CULTURES ARE PENDING. HE IS CURRENTLY RECEIVING NORMAL SALINE AT 50ML/HR, MAGNESIUM PER PROTOCOL, ZOFRAN 4MG IV Q6H PRN, DEMEROL 25MG IV Q6H PRN, LOMOTIL 1TAB PO TID PRN AND OTHER HOME MEDICATIONS WERE RESUMED. WE WILL CONTINUE WITH CURRENT PLAN OF CARE TODAY AND ADD FLAGYL 500MG PO TID. OTHERWISE, WE WILL FOLLOW UP WITH AM LABS AND CONTINUE TO MONITOR. - Past Medical Family Social History Past Med/Fam/Surg Hx: No changes since H&P Allergies: Allergies No Known Drug Allergies Allergy (Verified 07/18/19 16:29) - Review of Systems ROS: No change since H&P - Vital Signs and I&O's Vital Signs: Temperature 98.3 F Pulse Rate [Right Brachial] 91 Pulse Rate 85 Respiratory Rate 18 Blood Pressure [Left Arm] 149/91 Blood Pressure 129/74 O2 Sat by Pulse Oximetry 99 Intake and Output: Intake & Output 07/20/19 07/21/19 07/22/19 07/23/19 11:59 11:59 11:59 11:59 Intake Total 2200 / 2200 4160 / 4160 1360 / 1360 Balance 2200 / 2200 4160 / 4160 1360 / 1360 - Physical Exam Oriented: Normal Eyes: Normal Ear: Normal Nose: Normal Throat: Normal Respiratory: Generalized, Diminished Cardiovascular: Normal : Normal Auscultation: Bowel Sounds: Increased Palpation: Normal Tenderness: Diffuse, Mild. negative: Rebound, Guarding, Rigidity Skin: Normal Musculoskeletal: Normal Psychiatric: Normal Mood Description: Calm Affect: Normal Speech Pattern: Clear, Slurred - Laboratory and Diagnostics Result Diagrams: 07/22/19 06:09 07/22/19 06:09 Labs: 07/21/19 08:32 Stool Stool Culture - Preliminary 07/21/19 08:32 Stool - Final Laboratory WBC 2.3 X10^3/uL (3.6-10.0) L 07/22/19 06:09 RBC 3.85 X10^6/uL (4.7-6.0) L 07/22/19 06:09 Hgb 12.7 g/dL (13.5-18.0) L D 07/22/19 06:09 Hct 36.0 % (42.0-54.0) L 07/22/19 06:09 MCV 93.6 fL (80.0-100.0) 07/22/19 06:09 MCH 33.0 pg (27.0-34.0) 07/22/19 06:09 MCHC 35.3 g/dL (33.0-35.0) H 07/22/19 06:09 RDW 16.8 % (11.6-16.5) H 07/22/19 06:09 Plt Count 180 X10^3/uL (150.0-450.0) 07/22/19 06:09 Plt Count Comment Adequate (ADEQUATE) 07/22/19 06:09 MPV 7.7 fL (7.4-11.0) 07/22/19 06:09 Neut % (Auto) 78.0 % (42.0-75.0) H 07/22/19 06:09 Lymph % (Auto) 9.5 % (21.0-51.0) L 07/22/19 06:09 [place] % (Auto) 12.2 % (0.0-13.0) 07/22/19 06:09 Eos % (Auto) 0.1 % (0.9-2.9) L 07/22/19 06:09 Baso % (Auto) 0.2 % (0.2-1.0) 07/22/19 06:09 Neut # (Auto) 1.8 x10^3/uL (2.2-4.8) L 07/22/19 06:09 Lymph # (Auto) 0.2 X10^3/uL (1.3-2.9) L 07/22/19 06:09 [place] # (Auto) 0.3 x10^3/uL (0.3-0.8) 07/22/19 06:09 Eos # (Auto) 0.0 x10^3/uL (0.0-0.2) 07/22/19 06:09 Baso # (Auto) 0.0 X10^3/uL (0.0-0.1) 07/22/19 06:09 Absolute Nucleated RBC 0.5 /100WBC 07/22/19 06:09 Total Counted 100 07/22/19 06:09 Neutrophils % (Manual) 33 % (39-76) L 07/22/19 06:09 Band Neutrophils % 36 % (0-10) H 07/22/19 06:09 Lymphocytes % (Manual) 17 % (13-43) 07/22/19 06:09 Monocytes % (Manual) 14 % (4-9) H 07/22/19 06:09 Plt Morphology Comment Normal (NORMAL) 07/22/19 06:09 RBC Morphology Normal (NORMAL) 07/22/19 06:09 Sodium 132 mmol/L (136-145) L 07/22/19 06:09 Corrected Sodium 133 mmol/L (136-145) L 07/22/19 06:09 Potassium 4.1 mmol/L (3.5-5.1) 07/22/19 06:09 Chloride 102 mmol/L (98-107) 07/22/19 06:09 Carbon Dioxide 19.2 mmol/L (21-32) L 07/22/19 06:09 BUN 15 mg/dL (7-18) 07/22/19 06:09 Creatinine 1.02 mg/dL (0.70-1.30) 07/22/19 06:09 Est GFR (MDRD) Af Amer > 60 (>60) 07/22/19 06:09 Est GFR (MDRD) Non-Af > 60 (>60) 07/22/19 06:09 Glucose 135 mg/dL (65-99) H 07/22/19 06:09 POC Glucose (mg/dL) 125 mg/dL (65-99) H 07/22/19 05:19 Calcium 8.5 mg/dL (8.5-10.1) 07/22/19 06:09 Corrected Calcium 9.5 mg/dL (8.5-10.1) 07/22/19 06:09 Magnesium 2.2 mg/dL (1.7-2.9) 07/22/19 06:09 Total Bilirubin 1.70 mg/dL (0.2-1.0) H 07/22/19 06:09 AST 151 Units/L (15-37) H 07/22/19 06:09 ALT 586 Units/L (12-78) H 07/22/19 06:09 Alkaline Phosphatase 41 Units/L (46-116) L 07/22/19 06:09 Creatine Kinase 53 Units/L (39-308) 07/21/19 05:30 CK-MB (CK-2) < 1.0 ng/mL (0-4.0) 07/21/19 05:30 CK/CKMB % Calc 1.9 % (<4) 07/21/19 05:30 Troponin I < 0.02 ng/mL (0-1.5) 07/21/19 05:30 Total Protein 6.2 g/dL (6.4-8.2) L 07/22/19 06:09 Albumin 2.7 g/dL (3.4-5.0) L 07/22/19 06:09 Globulin 3.5 g/dL (2.5-4.5) 07/22/19 06:09 Albumin/Globulin Ratio 0.8 Ratio (1.1-2.1) L 07/22/19 06:09 Lipase 120 Units/L (73-393) 07/20/19 15:50 Specimen Type Random urine 07/20/19 17:45 Urine Color Yellow (YELLOW) 07/20/19 17:45 Urine Appearance Clear (CLEAR) 07/20/19 17:45 Urine pH 5.0 (5.0 - 8.0) 07/20/19 17:45 Ur Specific [place] 1.025 (1.000-1.030) 07/20/19 17:45 Urine Protein Negative (NEGATIVE) 07/20/19 17:45 Urine Glucose (UA) Negative (NEGATIVE) 07/20/19 17:45 Urine Ketones Negative (NEGATIVE) 07/20/19 17:45 Urine Occult Blood 1+ (NEGATIVE) 07/20/19 17:45 Urine Nitrite Negative (NEGATIVE) 07/20/19 17:45 Urine Bilirubin Negative (NEGATIVE) 07/20/19 17:45 Urine Urobilinogen Normal (NORMAL) 07/20/19 17:45 Ur Leukocyte Esterase Negative (NEGATIVE) 07/20/19 17:45 Urine RBC 0-2 /HPF (0-3) 07/20/19 17:45 Urine WBC None seen /HPF (0-5) 07/20/19 17:45 Ur Squamous Epith Cells Rare /HPF (NEGATIVE) 07/20/19 17:45 Urine Bacteria Trace /HPF (NEGATIVE) 07/20/19 17:45 Ur Culture Indicated? No/not indicated 07/20/19 17:45 Stool Description 30g,orange,liquid 07/21/19 08:32 Stool Description 30g,orange,liquid 07/21/19 08:32 Stl Occult Blood (IFOB) Negative (NEGATIVE) 07/21/19 08:32 Stool for White Cells Positive (NEGATIVE) A 07/21/19 08:32 Stl C. diff Tox B Gene Positive (NEGATIVE) A 07/21/19 08:32 Stl C. diff 027-NAP1-BI Negative (NEGATIVE) 07/21/19 08:32 C. difficile Toxin A&B Negative (NEGATIVE) 07/21/19 08:32 Cryptosporid parvum Ag Negative (NEGATIVE) 07/21/19 08:32 Giardia lamblia Ag Negative (NEGATIVE) 07/21/19 08:32 Influenza Type A (PCR) Negative (NEGATIVE) 07/20/19 14:44 Influenza Type B (PCR) Negative (NEGATIVE) 07/20/19 14:44 - Plan (1) Gastroenteritis Status: Acute Plan: ADMIT, NORMAL SALINE, IV ZOFRAN PRN, IV DEMEROL PRN, CONTINUE TO MONITOR (2) Nausea and vomiting Status: Acute Qualifiers: Vomiting type: unspecified Vomiting Intractability: unspecified Qualified Code(s): R11.2 - Nausea with vomiting, unspecified (3) Acute diarrhea Status: Acute Plan: FLAGYL 500MG PO TID, CONTINUE TO MONITOR (4) C. difficile enteritis Status: Acute Plan: FLAGYL 500MG PO TID, CONTINUE TO MONITOR
[2019-07-23] MEDS: NS 1000 ML 1,000 ML IV SCH (05:12)
[2019-07-23] MEDS: FLAGYL TAB 500 MG PO SCH ×3 (05:12→21:19)
[2019-07-23 06:13] LABS: BASOPHILS % (AUTO) 0.4 % (0.2-1.0); EOSINOPHILS % (AUTO) 1.9 % (0.9-2.9); HEMATOCRIT 29.6 % (42.0-54.0); HEMOGLOBIN 10.6 g/dL (13.5-18.0); LYMPHOCYTES # (AUTO) 0.3 X10^3/uL (1.3-2.9); LYMPHOCYTES % (AUTO) 17.8 % (21.0-51.0); MEAN CORPUSCULAR HEMOGLOBIN 33.4 pg (27.0-34.0); MEAN CORPUSCULAR HGB CONC 35.9 g/dL (33.0-35.0); MEAN CORPUSCULAR VOLUME 93.2 fL (80.0-100.0); MEAN PLATELET VOLUME 7.4 fL (7.4-11.0); MONOCYTES # (AUTO) 0.3 x10^3/uL (0.3-0.8); MONOCYTES % (AUTO) 19.3 % (0.0-13.0); NEUTROPHILS % (AUTO) 60.6 % (42.0-75.0); PLATELET COUNT 154 X10^3/uL (150.0-450.0); RED BLOOD COUNT 3.18 X10^6/uL (4.7-6.0); RED CELL DISTRIBUTION WIDTH 16.7 % (11.6-16.5)
[2019-07-23 06:24] LABS: WHITE BLOOD COUNT 1.6 X10^3/uL (3.6-10.0)
[2019-07-23 06:30] LABS: ALANINE AMINOTRANSFERASE 350 Units/L (12-78); ALBUMIN 2.5 g/dL (3.4-5.0); ALKALINE PHOSPHATASE 34 Units/L (46-116); ASPARTATE AMINO TRANSFERASE 48 Units/L (15-37); BLOOD UREA NITROGEN 11 mg/dL (7-18); CALCIUM 8.4 mg/dL (8.5-10.1); CHLORIDE 104 mmol/L (98-107); COR CA(FOR HYPOALB) 9.6 mg/dL (8.5-10.1); COR NA(FOR HYPERGLY) 137 mmol/L (136-145); CREATININE 0.83 mg/dL (0.70-1.30); SODIUM 137 mmol/L (136-145); TOTAL PROTEIN 5.7 g/dL (6.4-8.2); eGFR NON BLACK RACES > 60 (>60)
[2019-07-23 06:44] LABS: BAND NEUTROPHILS % 3 % (0-10); PLATELET MORPHOLOGY COMMENT NORMAL (NORMAL)
[2019-07-23] MEDS ORDERED: MICRO K EXTEN CAP 10 MEQ PO PRN (07:07)
[2019-07-23] MEDS ORDERED: KLOR-CON PO PRN (07:07)
[2019-07-23] MEDS ORDERED: POTASSIUM CHLORIDE LIQ 20 MEQ UDC PO PRN (07:07)
[2019-07-23] MEDS ORDERED: POTASSIUM CHL 40 MEQ/NS 0.45% 500 ML IV PRN (07:07)
[2019-07-23] MEDS ORDERED: K-RIDER 10 MEQ/NS 100 ML 10 MEQ/100 ML BAG IV PRN (07:07)
[2019-07-23] MEDS ORDERED: POTASSIUM CHL 60 MEQ/NS 0.45% 500 ML IV PRN (07:07)
[2019-07-23] MEDS ORDERED: K-DUR TAB 20 MEQ PO ONE (07:21)
[2019-07-23] MEDS: PriLOSEC PO SCH (09:05)
[2019-07-23] MEDS: ROXICODONE TAB 5 MG PO PRN (09:06)
[2019-07-23] MEDS: K-DUR TAB 20 MEQ PO PRN (09:06)
[2019-07-23] MEDS: ELIQUIS PO SCH ×2 (09:06→21:19)
[2019-07-23] MEDS: LOMOTIL PO PRN (09:06)
[2019-07-23] MEDS: NYSTATIN OINT TOP SCH ×2 (09:08→21:20)
[2019-07-23] MEDS: ZOFRAN INJ 4 MG VIAL IVP PRN (09:14)
[2019-07-23] MEDS ORDERED: PROCALAMINE 3 % 1,000 ML IV SCH (11:00)
[2019-07-23] MEDS: ALBUMIN HUMAN 25%- 100 ML 100 ML IV SCH (11:01)
[2019-07-23] MEDS: LOMOTIL PO SCH ×3 (13:08→21:25)
[2019-07-23] MEDS: LANTISEPTIC TOP PRN (13:09)
[2019-07-23] MEDS: TUCKS MEDICATED PAD TOP PRN (13:10)
[2019-07-23] MEDS: PREPARATION H OINT RECTAL PRN (13:10)
--- NOTE | 2019-07-23 20:49 | PCM.PROG ---
Progress Note - Progress Note for Day of Date of Exam: 07/23/19 - Subjective Subjective: IS BEING TREATED FOR GASTROENTERITIS AND C.DIFF DIARRHEA. TODAY, HE IS ALERT AND ORIENTED, LYING IN BED ON MORNING ROUNDS. HE CONTINUES WITH COMPLAINTS OF DIARRHEA, NAUSEA, AND ABDOMINAL CRAMPING. ON EXAMINATION, HEART IS REGULAR IN RATEAND RHYTHM. BILATERAL LUNGS ARE CLEAR TO AUSCULTATION. ABDOMEN IS ROUND, SOFT, AND NOTED WITH DIFFUSE TENDERNESS. HYPERACTIVE BOWEL SOUNDS ARE NOTED IN ALL QUADRANTS. HIS VITALS THIS MORNING ARE: 98.2-96-18-95%-124/84. LABS WERE OBTAINED. ABNORMAL LAB VALUES INCLUDE THE FOLLOWING: WBC 1.6, RBC 3.18, HGB 10.6, HCT 29.6, POTASSIUM 3.4, GLUCOSE 113, CALCIUM 8.4, AST 48, ALT 350, ALK PHOS 34, TOTAL PROTEIN 5.7, ALBUMIN 2.5. STOOL CULTURES ARE PENDING. HE IS CURRENTLY RECEIVING NORMAL SALINE AT 50ML/HR, FLAGYL 500MG PO TID, MAGNESIUM PER PROTOCOL, ZOFRAN 4MG IV Q6H PRN, DEMEROL 25MG IV Q6H PRN, LOMOTIL 1TAB PO TID PRN AND OTHER HOME MEDICATIONS WERE RESUMED. WE WILL DISCONTINUE THE SALINE AND START IV PROCAL AND IV ALBUMIN TODAY. WE WILL CHANGE LOMOTIL TO 1 TAB PO QID SCHEDULED. OTHERWISE, WE WILL FOLLOW UP WITH AM LABS AND CONTINUE TO MONITOR. - Past Medical Family Social History Past Med/Fam/Surg Hx: No changes since H&P Allergies: Allergies No Known Drug Allergies Allergy (Verified 07/18/19 16:29) - Review of Systems ROS: No change since H&P - Vital Signs and I&O's Vital Signs: Temperature 98.8 F Pulse Rate [Right Brachial] 90 Pulse Rate 85 Respiratory Rate 18 Blood Pressure [Left Arm] 143/77 Blood Pressure 129/74 O2 Sat by Pulse Oximetry 97 Intake and Output: Intake & Output 07/21/19 07/22/19 07/23/19 07/24/19 11:59 11:59 11:59 11:59 Intake Total 2200 / 2200 4160 / 4160 2970 / 2970 2336 / 2336 Balance 2200 / 2200 4160 / 4160 2970 / 2970 2336 / 2336 - Physical Exam Oriented: Normal Eyes: Normal Ear: Normal Nose: Normal Throat: Normal Respiratory: Generalized, Diminished Cardiovascular: Normal : Normal Auscultation: Bowel Sounds: Increased Tenderness: Diffuse, Mild. negative: Rebound, Guarding, Rigidity Skin: Normal Musculoskeletal: Normal Psychiatric: Normal Mood Description: Calm Affect: Normal Speech Pattern: Clear, Slurred - Laboratory and Diagnostics Result Diagrams: 07/23/19 05:56 07/23/19 05:56 Labs: 07/21/19 08:32 Stool Stool Culture - Final 07/21/19 08:32 Stool - Final Laboratory WBC 1.6 X10^3/uL (3.6-10.0) L* 07/23/19 05:56 RBC 3.18 X10^6/uL (4.7-6.0) L 07/23/19 05:56 Hgb 10.6 g/dL (13.5-18.0) L D 07/23/19 05:56 Hct 29.6 % (42.0-54.0) L 07/23/19 05:56 MCV 93.2 fL (80.0-100.0) 07/23/19 05:56 MCH 33.4 pg (27.0-34.0) 07/23/19 05:56 MCHC 35.9 g/dL (33.0-35.0) H 07/23/19 05:56 RDW 16.7 % (11.6-16.5) H 07/23/19 05:56 Plt Count 154 X10^3/uL (150.0-450.0) 07/23/19 05:56 Plt Count Comment Adequate (ADEQUATE) 07/23/19 05:56 MPV 7.4 fL (7.4-11.0) 07/23/19 05:56 Neut % (Auto) 60.6 % (42.0-75.0) 07/23/19 05:56 Lymph % (Auto) 17.8 % (21.0-51.0) L 07/23/19 05:56 [place] % (Auto) 19.3 % (0.0-13.0) H 07/23/19 05:56 Eos % (Auto) 1.9 % (0.9-2.9) 07/23/19 05:56 Baso % (Auto) 0.4 % (0.2-1.0) 07/23/19 05:56 Neut # (Auto) 1.0 x10^3/uL (2.2-4.8) L 07/23/19 05:56 Lymph # (Auto) 0.3 X10^3/uL (1.3-2.9) L 07/23/19 05:56 [place] # (Auto) 0.3 x10^3/uL (0.3-0.8) 07/23/19 05:56 Eos # (Auto) 0.0 x10^3/uL (0.0-0.2) 07/23/19 05:56 Baso # (Auto) 0.0 X10^3/uL (0.0-0.1) 07/23/19 05:56 Absolute Nucleated RBC 0.2 /100WBC 07/23/19 05:56 Total Counted 100 07/23/19 05:56 Neutrophils % (Manual) 54 % (39-76) 07/23/19 05:56 Band Neutrophils % 3 % (0-10) 07/23/19 05:56 Lymphocytes % (Manual) 38 % (13-43) 07/23/19 05:56 Monocytes % (Manual) 5 % (4-9) 07/23/19 05:56 Plt Morphology Comment Normal (NORMAL) 07/23/19 05:56 RBC Morphology Normal (NORMAL) 07/23/19 05:56 Sodium 137 mmol/L (136-145) 07/23/19 05:56 Corrected Sodium 137 mmol/L (136-145) 07/23/19 05:56 Potassium 3.4 mmol/L (3.5-5.1) L 07/23/19 05:56 Chloride 104 mmol/L (98-107) 07/23/19 05:56 Carbon Dioxide 23.0 mmol/L (21-32) 07/23/19 05:56 BUN 11 mg/dL (7-18) 07/23/19 05:56 Creatinine 0.83 mg/dL (0.70-1.30) 07/23/19 05:56 Est GFR (MDRD) Af Amer > 60 (>60) 07/23/19 05:56 Est GFR (MDRD) Non-Af > 60 (>60) 07/23/19 05:56 Glucose 113 mg/dL (65-99) H 07/23/19 05:56 POC Glucose (mg/dL) 125 mg/dL (65-99) H 07/22/19 05:19 Calcium 8.4 mg/dL (8.5-10.1) L 07/23/19 05:56 Corrected Calcium 9.6 mg/dL (8.5-10.1) 07/23/19 05:56 Magnesium 2.2 mg/dL (1.7-2.9) 07/22/19 06:09 Total Bilirubin 0.60 mg/dL (0.2-1.0) 07/23/19 05:56 AST 48 Units/L (15-37) H 07/23/19 05:56 ALT 350 Units/L (12-78) H 07/23/19 05:56 Alkaline Phosphatase 34 Units/L (46-116) L 07/23/19 05:56 Creatine Kinase 53 Units/L (39-308) 07/21/19 05:30 CK-MB (CK-2) < 1.0 ng/mL (0-4.0) 07/21/19 05:30 CK/CKMB % Calc 1.9 % (<4) 07/21/19 05:30 Troponin I < 0.02 ng/mL (0-1.5) 07/21/19 05:30 Total Protein 5.7 g/dL (6.4-8.2) L 07/23/19 05:56 Albumin 2.5 g/dL (3.4-5.0) L 07/23/19 05:56 Globulin 3.2 g/dL (2.5-4.5) 07/23/19 05:56 Albumin/Globulin Ratio 0.8 Ratio (1.1-2.1) L 07/23/19 05:56 Lipase 120 Units/L (73-393) 07/20/19 15:50 Specimen Type Random urine 07/20/19 17:45 Urine Color Yellow (YELLOW) 07/20/19 17:45 Urine Appearance Clear (CLEAR) 07/20/19 17:45 Urine pH 5.0 (5.0 - 8.0) 07/20/19 17:45 Ur Specific [place] 1.025 (1.000-1.030) 07/20/19 17:45 Urine Protein Negative (NEGATIVE) 07/20/19 17:45 Urine Glucose (UA) Negative (NEGATIVE) 07/20/19 17:45 Urine Ketones Negative (NEGATIVE) 07/20/19 17:45 Urine Occult Blood 1+ (NEGATIVE) 07/20/19 17:45 Urine Nitrite Negative (NEGATIVE) 07/20/19 17:45 Urine Bilirubin Negative (NEGATIVE) 07/20/19 17:45 Urine Urobilinogen Normal (NORMAL) 07/20/19 17:45 Ur Leukocyte Esterase Negative (NEGATIVE) 07/20/19 17:45 Urine RBC 0-2 /HPF (0-3) 07/20/19 17:45 Urine WBC None seen /HPF (0-5) 07/20/19 17:45 Ur Squamous Epith Cells Rare /HPF (NEGATIVE) 07/20/19 17:45 Urine Bacteria Trace /HPF (NEGATIVE) 07/20/19 17:45 Ur Culture Indicated? No/not indicated 07/20/19 17:45 Stool Description 30g,orange,liquid 07/21/19 08:32 Stool Description 30g,orange,liquid 07/21/19 08:32 Stl Occult Blood (IFOB) Negative (NEGATIVE) 07/21/19 08:32 Stool for White Cells Positive (NEGATIVE) A 07/21/19 08:32 Stl C. diff Tox B Gene Positive (NEGATIVE) A 07/21/19 08:32 Stl C. diff 027-NAP1-BI Negative (NEGATIVE) 07/21/19 08:32 C. difficile Toxin A&B Negative (NEGATIVE) 07/21/19 08:32 Cryptosporid parvum Ag Negative (NEGATIVE) 07/21/19 08:32 Giardia lamblia Ag Negative (NEGATIVE) 07/21/19 08:32 Influenza Type A (PCR) Negative (NEGATIVE) 07/20/19 14:44 Influenza Type B (PCR) Negative (NEGATIVE) 07/20/19 14:44 - Plan (1) Gastroenteritis Status: Acute Plan: IV PROCAL, IV ALBUMIN, IV ZOFRAN PRN, IV DEMEROL PRN, CONTINUE TO MONITOR (2) Nausea and vomiting Status: Acute Qualifiers: Vomiting type: unspecified Vomiting Intractability: unspecified Qualified Code(s): R11.2 - Nausea with vomiting, unspecified (3) Acute diarrhea Status: Acute Plan: FLAGYL 500MG PO TID, LOMOTIL 1 TAB PO QID, CONTINUE TO MONITOR (4) C. difficile enteritis Status: Acute Plan: FLAGYL 500MG PO TID, CONTINUE TO MONITOR
[2019-07-24] MEDS: FLAGYL TAB 500 MG PO SCH ×3 (06:33→21:32)
[2019-07-24 06:45] LABS: ALANINE AMINOTRANSFERASE 222 Units/L (12-78); ALBUMIN 2.8 g/dL (3.4-5.0); ALKALINE PHOSPHATASE 31 Units/L (46-116); ASPARTATE AMINO TRANSFERASE 24 Units/L (15-37); BLOOD UREA NITROGEN 5 mg/dL (7-18); CALCIUM 8.5 mg/dL (8.5-10.1); CARBON DIOXIDE 25.9 mmol/L (21-32); CHLORIDE 106 mmol/L (98-107); COR CA(FOR HYPOALB) 9.5 mg/dL (8.5-10.1); CREATININE 0.68 mg/dL (0.70-1.30); SODIUM 140 mmol/L (136-145); TOTAL PROTEIN 5.6 g/dL (6.4-8.2); eGFR NON BLACK RACES > 60 (>60)
[2019-07-24 06:48] LABS: BASOPHILS % (AUTO) 0.1 % (0.2-1.0); EOSINOPHILS % (AUTO) 1.2 % (0.9-2.9); HEMATOCRIT 28.5 % (42.0-54.0); HEMOGLOBIN 10.2 g/dL (13.5-18.0); LYMPHOCYTES # (AUTO) 0.2 X10^3/uL (1.3-2.9); LYMPHOCYTES % (AUTO) 13.4 % (21.0-51.0); MEAN CORPUSCULAR HGB CONC 35.7 g/dL (33.0-35.0); MEAN CORPUSCULAR VOLUME 95.2 fL (80.0-100.0); MEAN PLATELET VOLUME 7.8 fL (7.4-11.0); MONOCYTES # (AUTO) 0.3 x10^3/uL (0.3-0.8); MONOCYTES % (AUTO) 16.3 % (0.0-13.0); NEUTROPHILS # (AUTO) 1.1 x10^3/uL (2.2-4.8); PLATELET COUNT 150 X10^3/uL (150.0-450.0); RED BLOOD COUNT 2.99 X10^6/uL (4.7-6.0); RED CELL DISTRIBUTION WIDTH 16.7 % (11.6-16.5)
[2019-07-24 06:57] LABS: WHITE BLOOD COUNT 1.6 X10^3/uL (3.6-10.0)
[2019-07-24 07:26] LABS: PLATELET MORPHOLOGY COMMENT NORMAL (NORMAL)
[2019-07-24] MEDS ORDERED: DECADRON TAB PO SCH (09:00)
[2019-07-24] MEDS: ALBUMIN HUMAN 25%- 100 ML 100 ML IV SCH (09:45)
[2019-07-24] MEDS: PriLOSEC PO SCH (09:48)
[2019-07-24] MEDS: LOMOTIL PO SCH ×4 (09:50→21:32)
[2019-07-24] MEDS: ELIQUIS PO SCH ×2 (09:50→21:33)
[2019-07-24] MEDS: MAGNESIUM SULFATE 1 GRAM/100 mL PREMIX 1 GM/100 ML BAG IV PRN (09:50)
[2019-07-24] MEDS: NYSTATIN OINT TOP SCH ×2 (13:50→21:34)
[2019-07-24] MEDS: ZOFRAN INJ 4 MG VIAL IVP PRN ×2 (14:56→22:45)
[2019-07-24] MEDS: K-DUR TAB 20 MEQ PO PRN (14:56)
[2019-07-24] MEDS: ROXICODONE TAB 5 MG PO PRN ×2 (14:57→22:51)
--- NOTE | 2019-07-24 19:35 | PCM.PROG ---
Progress Note - Progress Note for Day of Date of Exam: 07/24/19 - Subjective Subjective: IS BEING TREATED FOR GASTROENTERITIS AND C.DIFF DIARRHEA. TODAY, HE IS ALERT AND ORIENTED, LYING IN BED ON MORNING ROUNDS. HE CONTINUES WITH COMPLAINTS OF DIARRHEA, NAUSEA, AND ABDOMINAL CRAMPING TODAY, BUT DOES REPORT SLIGHT IMPROVEMENT IN SYMPTOMS. ON EXAMINATION, HEART IS REGULAR IN RATE AND RHYTHM. BILATERAL LUNGS ARE CLEAR TO AUSCULTATION. ABDOMEN IS ROUND, SOFT, AND NOTED WITH DIFFUSE TENDERNESS. HYPERACTIVE BOWEL SOUNDS ARE NOTED IN ALL QUADRANTS. HIS VITALS THIS MORNING ARE: 98.5-103-18-93%-134/82. LABS WERE OBTAINED. ABNORMAL LAB VALUES INCLUDE THE FOLLOWING: WBC 1.6, RBC 2.99, HGB 10.2, HCT 28.5, POTASSIUM 3.0, BUN 5, CREATININE 0.68, MAGNESIUM 1.5, ALT 222, ALK PHOS 31, TOTAL PROTEIN 5.6, ALBUMIN 2.8. STOOL CULTURES ARE PENDING. HE IS CURRENTLY RECEIVING IV PROCAL, IV ALBUMIN, FLAGYL 500MG PO TID, MAGNESIUM PER PROTOCOL, ZOFRAN 4MG IV Q6H PRN, DEMEROL 25MG IV Q6H PRN, LOMOTIL 1TAB PO QID [place], AND OTHER HOME MEDICATIONS WERE RESUMED. WE WILL CONTINUE WITH CURRENT PLAN OF CARE TODAY. OTHERWISE, WE WILL FOLLOW UP WITH AM LABS AND CONTINUE TO MONITOR. - Past Medical Family Social History Past Med/Fam/Surg Hx: No changes since H&P Allergies: Allergies No Known Drug Allergies Allergy (Verified 07/18/19 16:29) - Review of Systems ROS: No change since H&P - Vital Signs and I&O's Vital Signs: Temperature 98.0 F Pulse Rate [Left Brachial] 73 Pulse Rate [Right Brachial] 93 Pulse Rate 85 Respiratory Rate 20 Blood Pressure [Left Arm] 136/80 Blood Pressure 129/74 O2 Sat by Pulse Oximetry 96 Intake and Output: Intake & Output 07/22/19 07/23/19 07/24/19 07/25/19 11:59 11:59 11:59 11:59 Intake Total 4160 / 4160 2970 / 2970 3446 / 3446 920 / 920 Balance 4160 / 4160 2970 / 2970 3446 / 3446 920 / 920 - Physical Exam Oriented: Normal Eyes: Normal Ear: Normal Nose: Normal Throat: Normal Respiratory: Generalized, Diminished Cardiovascular: Normal : Normal Auscultation: Bowel Sounds: Increased Tenderness: Diffuse, Mild. negative: Rebound, Guarding, Rigidity Skin: Normal Musculoskeletal: Normal Psychiatric: Normal Mood Description: Calm Affect: Normal Speech Pattern: Clear, Appropriate - Laboratory and Diagnostics Result Diagrams: 07/24/19 06:04 07/24/19 17:30 Labs: 07/21/19 08:32 Stool Stool Culture - Final 07/21/19 08:32 Stool - Final Laboratory WBC 1.6 X10^3/uL (3.6-10.0) L* 07/24/19 06:04 RBC 2.99 X10^6/uL (4.7-6.0) L 07/24/19 06:04 Hgb 10.2 g/dL (13.5-18.0) L 07/24/19 06:04 Hct 28.5 % (42.0-54.0) L 07/24/19 06:04 MCV 95.2 fL (80.0-100.0) 07/24/19 06:04 MCH 34.0 pg (27.0-34.0) 07/24/19 06:04 MCHC 35.7 g/dL (33.0-35.0) H 07/24/19 06:04 RDW 16.7 % (11.6-16.5) H 07/24/19 06:04 Plt Count 150 X10^3/uL (150.0-450.0) 07/24/19 06:04 Plt Count Comment Adequate (ADEQUATE) 07/24/19 06:04 MPV 7.8 fL (7.4-11.0) 07/24/19 06:04 Neut % (Auto) 69.0 % (42.0-75.0) 07/24/19 06:04 Lymph % (Auto) 13.4 % (21.0-51.0) L 07/24/19 06:04 [place] % (Auto) 16.3 % (0.0-13.0) H 07/24/19 06:04 Eos % (Auto) 1.2 % (0.9-2.9) 07/24/19 06:04 Baso % (Auto) 0.1 % (0.2-1.0) L 07/24/19 06:04 Neut # (Auto) 1.1 x10^3/uL (2.2-4.8) L 07/24/19 06:04 Lymph # (Auto) 0.2 X10^3/uL (1.3-2.9) L 07/24/19 06:04 [place] # (Auto) 0.3 x10^3/uL (0.3-0.8) 07/24/19 06:04 Eos # (Auto) 0.0 x10^3/uL (0.0-0.2) 07/24/19 06:04 Baso # (Auto) 0.0 X10^3/uL (0.0-0.1) 07/24/19 06:04 Absolute Nucleated RBC 0.2 /100WBC 07/24/19 06:04 Total Counted 50 07/24/19 06:04 Neutrophils % (Manual) 74 % (39-76) 07/24/19 06:04 Band Neutrophils % 3 % (0-10) 07/23/19 05:56 Lymphocytes % (Manual) 16 % (13-43) 07/24/19 06:04 Monocytes % (Manual) 8 % (4-9) 07/24/19 06:04 Eosinophils % (Manual) 2 % (0-6) 07/24/19 06:04 Plt Morphology Comment Normal (NORMAL) 07/24/19 06:04 RBC Morphology Normal (NORMAL) 07/24/19 06:04 Sodium 140 mmol/L (136-145) 07/24/19 06:04 Corrected Sodium TNP 07/24/19 06:04 Potassium 3.3 mmol/L (3.5-5.1) L 07/24/19 17:30 Chloride 106 mmol/L (98-107) 07/24/19 06:04 Carbon Dioxide 25.9 mmol/L (21-32) 07/24/19 06:04 BUN 5 mg/dL (7-18) L 07/24/19 06:04 Creatinine 0.68 mg/dL (0.70-1.30) L 07/24/19 06:04 Est GFR (MDRD) Af Amer > 60 (>60) 07/24/19 06:04 Est GFR (MDRD) Non-Af > 60 (>60) 07/24/19 06:04 Glucose 96 mg/dL (65-99) 07/24/19 06:04 POC Glucose (mg/dL) 125 mg/dL (65-99) H 07/22/19 05:19 Calcium 8.5 mg/dL (8.5-10.1) 07/24/19 06:04 Corrected Calcium 9.5 mg/dL (8.5-10.1) 07/24/19 06:04 Magnesium 1.5 mg/dL (1.7-2.9) L 07/24/19 06:04 Total Bilirubin 0.40 mg/dL (0.2-1.0) 07/24/19 06:04 AST 24 Units/L (15-37) 07/24/19 06:04 ALT 222 Units/L (12-78) H 07/24/19 06:04 Alkaline Phosphatase 31 Units/L (46-116) L 07/24/19 06:04 Creatine Kinase 53 Units/L (39-308) 07/21/19 05:30 CK-MB (CK-2) < 1.0 ng/mL (0-4.0) 07/21/19 05:30 CK/CKMB % Calc 1.9 % (<4) 07/21/19 05:30 Troponin I < 0.02 ng/mL (0-1.5) 07/21/19 05:30 Total Protein 5.6 g/dL (6.4-8.2) L 07/24/19 06:04 Albumin 2.8 g/dL (3.4-5.0) L 07/24/19 06:04 Globulin 2.8 g/dL (2.5-4.5) 07/24/19 06:04 Albumin/Globulin Ratio 1.0 Ratio (1.1-2.1) L 07/24/19 06:04 Lipase 120 Units/L (73-393) 07/20/19 15:50 Specimen Type Random urine 07/20/19 17:45 Urine Color Yellow (YELLOW) 07/20/19 17:45 Urine Appearance Clear (CLEAR) 07/20/19 17:45 Urine pH 5.0 (5.0 - 8.0) 07/20/19 17:45 Ur Specific [place] 1.025 (1.000-1.030) 07/20/19 17:45 Urine Protein Negative (NEGATIVE) 07/20/19 17:45 Urine Glucose (UA) Negative (NEGATIVE) 07/20/19 17:45 Urine Ketones Negative (NEGATIVE) 07/20/19 17:45 Urine Occult Blood 1+ (NEGATIVE) 07/20/19 17:45 Urine Nitrite Negative (NEGATIVE) 07/20/19 17:45 Urine Bilirubin Negative (NEGATIVE) 07/20/19 17:45 Urine Urobilinogen Normal (NORMAL) 07/20/19 17:45 Ur Leukocyte Esterase Negative (NEGATIVE) 07/20/19 17:45 Urine RBC 0-2 /HPF (0-3) 07/20/19 17:45 Urine WBC None seen /HPF (0-5) 07/20/19 17:45 Ur Squamous Epith Cells Rare /HPF (NEGATIVE) 07/20/19 17:45 Urine Bacteria Trace /HPF (NEGATIVE) 07/20/19 17:45 Ur Culture Indicated? No/not indicated 07/20/19 17:45 Stool Description 30g,orange,liquid 07/21/19 08:32 Stool Description 30g,orange,liquid 07/21/19 08:32 Stl Occult Blood (IFOB) Negative (NEGATIVE) 07/21/19 08:32 Stool for White Cells Positive (NEGATIVE) A 07/21/19 08:32 Stl C. diff Tox B Gene Positive (NEGATIVE) A 07/21/19 08:32 Stl C. diff 027-NAP1-BI Negative (NEGATIVE) 07/21/19 08:32 C. difficile Toxin A&B Negative (NEGATIVE) 07/21/19 08:32 Cryptosporid parvum Ag Negative (NEGATIVE) 07/21/19 08:32 Giardia lamblia Ag Negative (NEGATIVE) 07/21/19 08:32 Influenza Type A (PCR) Negative (NEGATIVE) 07/20/19 14:44 Influenza Type B (PCR) Negative (NEGATIVE) 07/20/19 14:44 - Plan (1) Gastroenteritis Status: Acute Plan: IV PROCAL, IV ALBUMIN, IV ZOFRAN PRN, IV DEMEROL PRN, CONTINUE TO MONITOR (2) Nausea and vomiting Status: Acute Qualifiers: Vomiting type: unspecified Vomiting Intractability: unspecified Qualified Code(s): R11.2 - Nausea with vomiting, unspecified (3) Acute diarrhea Status: Acute Plan: FLAGYL 500MG PO TID, LOMOTIL 1 TAB PO QID, CONTINUE TO MONITOR (4) C. difficile enteritis Status: Acute Plan: FLAGYL 500MG PO TID, CONTINUE TO MONITOR
[2019-07-25] MEDS: FLAGYL TAB 500 MG PO SCH (06:19)
[2019-07-25 06:59] LABS: BASOPHILS % (AUTO) 0.4 % (0.2-1.0); EOSINOPHILS % (AUTO) 1.2 % (0.9-2.9); HEMATOCRIT 29.2 % (42.0-54.0); HEMOGLOBIN 10.3 g/dL (13.5-18.0); LYMPHOCYTES # (AUTO) 0.3 X10^3/uL (1.3-2.9); LYMPHOCYTES % (AUTO) 15.6 % (21.0-51.0); MEAN CORPUSCULAR HEMOGLOBIN 33.5 pg (27.0-34.0); MEAN CORPUSCULAR HGB CONC 35.2 g/dL (33.0-35.0); MEAN CORPUSCULAR VOLUME 95.1 fL (80.0-100.0); MEAN PLATELET VOLUME 7.7 fL (7.4-11.0); MONOCYTES # (AUTO) 0.3 x10^3/uL (0.3-0.8); MONOCYTES % (AUTO) 15.8 % (0.0-13.0); NEUTROPHILS # (AUTO) 1.5 x10^3/uL (2.2-4.8); PLATELET COUNT 169 X10^3/uL (150.0-450.0); RED BLOOD COUNT 3.07 X10^6/uL (4.7-6.0); RED CELL DISTRIBUTION WIDTH 16.6 % (11.6-16.5); WHITE BLOOD COUNT 2.2 X10^3/uL (3.6-10.0)
[2019-07-25 07:29] LABS: ALANINE AMINOTRANSFERASE 168 Units/L (12-78); ALKALINE PHOSPHATASE 33 Units/L (46-116); ASPARTATE AMINO TRANSFERASE 25 Units/L (15-37); BLOOD UREA NITROGEN 4 mg/dL (7-18); CALCIUM 8.4 mg/dL (8.5-10.1); CARBON DIOXIDE 25.7 mmol/L (21-32); CHLORIDE 105 mmol/L (98-107); COR CA(FOR HYPOALB) 9.2 mg/dL (8.5-10.1); CREATININE 0.73 mg/dL (0.70-1.30); MAGNESIUM 1.7 mg/dL (1.7-2.9); SODIUM 139 mmol/L (136-145); TOTAL PROTEIN 5.9 g/dL (6.4-8.2); eGFR NON BLACK RACES > 60 (>60)
[2019-07-25 07:36] LABS: BAND NEUTROPHILS % 4 % (0-10); PLATELET MORPHOLOGY COMMENT NORMAL (NORMAL)
[2019-07-25] MEDS: ALBUMIN HUMAN 25%- 100 ML 100 ML IV SCH (09:07)
[2019-07-25] MEDS: PriLOSEC PO SCH (09:08)
[2019-07-25] MEDS: ELIQUIS PO SCH (09:08)
[2019-07-25] MEDS: LOMOTIL PO SCH (09:08)
[2019-07-25] MEDS: NYSTATIN OINT TOP SCH (09:09)
[2019-07-25 11:57] VITALS: BP 129/85
== END 2019-07-25 12:10 | disposition home or self-care (01) | DRG 392 ==
LOC: MED/SURG 14:20 → ER 14:20 → MED/SURG 22:40
PROVIDERS: ADMIT Internal Medicine; ATTEND Internal Medicine
DX: K52.9 Noninfective gastroenteritis and colitis, unspecified; C71.9 Malignant neoplasm of brain, unspecified; R00.0 Tachycardia, unspecified; A04.72 Enterocolitis due to Clostridium difficile, not specified as recurrent
CPT/HCPCS: 36415; 74022; 74177; 80053; 81001; 82270; 82550; 82553; 83630; 83690; 83735; 84132; 84484; 85025; 87045; 87324; 87328; 87329; 87427; 87449; 87493; 87502; 87899; 93005; 96365; 96367; 96374; 96375; 99284; P9047; A4216; A4222; B5200; G0378; J1170; J1642; J2175; J2405; J3475; J7030; J8540